=== PATIENT | male | born 1955 | race Caucasian/White ===

== ENCOUNTER 2017-02-16 08:00 | Outpatient (CLI) | payer BC ==
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
== END 2017-02-16 08:01 | disposition home or self-care (01) ==
LOC: DI 08:00
PROVIDERS: ATTEND Physician Assistant
DX: M79.642 Pain in left hand (principal)

== ENCOUNTER 2022-03-22 08:00 | Outpatient (CLI) | payer BC ==
[2022-03-22 13:08] LABS: RESPIRATORY SYNCYTIAL VIRUS Negative (Negative)
== END 2022-03-22 23:59 | disposition home or self-care (01) ==
LOC: LAB.N 08:00
PROVIDERS: ATTEND Nurse Practitioner
DX: J06.9 Acute upper respiratory infection, unspecified (principal)
CPT/HCPCS: 87280